=== PATIENT | male | born 1940 | race Caucasian/White ===

== ENCOUNTER 2017-12-01 12:26 | Emergency (ER) | payer OTHER ==
[2017-12-01 13:13] LABS: #Lymphocytes 0.8 thou/uL (1.20-3.40); #Monocytes 0.3 thou/uL (0.11-0.59); #Neutrophils 5.9 thou/uL (1.40-6.50); %Basophils 0.6 % (0.0-1.0); %Eosinophils 0.4 % (0.0-10.0); %Lymphocytes 11.8 % (21.0-51.0); %Monocytes 4.2 % (0.0-10.0); %Neutrophils 82.9 % (42.0-75.0); Hemoglobin 12.9 g/dL (14.0-18.0); Mean Corpuscular HGB CONC 33.2 g/dL (32.0-36.0); Mean Corpuscular Hemoglobin 29.5 pg (27.0-31.0); Mean Platelet Volume 9.1 fL (7.4-10.4); Platelet Count 153 thou/uL (130-400); Red Blood Cell (RBC) Count 4.37 mill/uL (4.70-6.10); White Blood Cell (WBC) Count 7.1 thou/uL (4.8-10.8)
[2017-12-01 13:18] LABS: INR-International Normal Ratio 1.1; PTT 30.7 SEC (22.9-36.1)
[2017-12-01 13:27] LABS: ALT (SGPT) 18 U/L (8-55); AST (SGOT) 16 U/L (5-34); Albumin 3.8 g/dL (3.4-4.8); Alkaline Phosphatase 87 U/L (40-150); Anion Gap 14 mmol/L (10-20); BUN (Urea Nitrogen) 30 mg/dL (8.4-25.7); Bilirubin, Total 0.4 mg/dL (0.2-1.2); CK (CPK) 99 U/L (30-200); Calc. Creatinine Clearance 0 mL/min (70-130); Calcium 9.4 mg/dL (7.8-10.44); Carbon Dioxide 26 mmol/L (23-31); Chloride 102 mmol/L (98-107); Estimated GFR-MDRD 70; Globulin 2.4 g/dL (2.4-3.5); Glucose 131 mg/dL (83-110); Potassium 4.9 mmol/L (3.5-5.1); Protein, Total 6.2 g/dL (5.8-8.1); Sodium 137 mmol/L (136-145)
[2017-12-01 13:28] LABS: CKMB 2.5 ng/mL (0-6.6); Troponin I Less than 0.010 ng/mL (< 0.028)
[2017-12-01] MEDS ORDERED: Metoprolol Tartrate 25 MG TAB ONE (14:00)
--- NOTE | 2017-12-01 14:29 | RAD ---
SINGLE VIEW OF THE CHEST: Comparison: None. History: Chest pain. FINDINGS: Single view of the chest shows a normal sized cardiomediastinal silhouette. There is no evidence of c onsolidation, mass, or pleural effusion. The bones are unremarkable. IMPRESSION: No evidence of acute cardiopulmonary disease. POS: [facility]
[2017-12-01] MEDS ORDERED: Apixaban 5 MG TAB PO SCH (15:45)
== END 2017-12-01 15:54 | disposition home or self-care (01) ==
LOC: NAV ERS 12:26
DX: I48.91 Unspecified atrial fibrillation (principal); I34.0 Nonrheumatic mitral (valve) insufficiency; M19.90 Unspecified osteoarthritis, unspecified site; N40.0 Benign prostatic hyperplasia without lower urinary tract symptoms; Z79.899 Other long term (current) drug therapy
CPT/HCPCS: 36415; 71045; 80053; 82553; 83880; 84443; 84484; 85025; 85610; 85730; 93005; 93306

== ENCOUNTER 2018-05-30 07:42 | Emergency (ER) | payer MEDICARE, OTHER ==
[2018-05-30 08:43] LABS: ALT (SGPT) 26 U/L (8-55); AST (SGOT) 20 U/L (5-34); Albumin 3.7 g/dL (3.4-4.8); Alkaline Phosphatase 81 U/L (40-150); Anion Gap 11 mmol/L (10-20); BUN (Urea Nitrogen) 22 mg/dL (8.4-25.7); Bilirubin, Total 0.5 mg/dL (0.2-1.2); Calc. Creatinine Clearance 0 mL/min (70-130); Calcium 9.4 mg/dL (7.8-10.44); Carbon Dioxide 25 mmol/L (23-31); Chloride 104 mmol/L (98-107); Estimated GFR-MDRD Greater than 90; Globulin 2.3 g/dL (2.4-3.5); Glucose 103 mg/dL (83-110); Potassium 4.1 mmol/L (3.5-5.1); Sodium 136 mmol/L (136-145)
[2018-05-30 08:44] LABS: CKMB 1.2 ng/mL (0-6.6)
--- NOTE | 2018-05-30 08:49 | CT ---
CT HEAD NONCONTRAST: HISTORY: Syncope. Dizziness. FINDINGS: No comparison. There is no evidence of acute intracranial hemorrhage or infarct. Ventricles appear normal in size, shape, and position. There is no mass effect of shift of midline structures. IMPRESSION: No acute intracranial abnormalities are demonstrated. POS: [facility]
--- NOTE | 2018-05-30 08:50 | RAD ---
CHEST 1 VIEW: HISTORY: Dizziness. COMPARISON: 12/01/2017. FINDINGS: Cardiac silhouette is magnified by projection. Pulmonary vasculature is unremarkable. Mediastinum i s midline. No lobar consolidation or evidence of pneumothorax. drill runner helper leads overlie the ch est. IMPRESSION: No active cardiopulmonary abnormalities are demonstrated. POS: [facility]
[2018-05-30 09:02] LABS: #Basophils 0.1 thou/uL (0.0-0.2); #Eosinphils 0.1 thou/uL (0.0-0.7); #Lymphocytes 1.2 thou/uL (1.20-3.40); #Monocytes 0.6 thou/uL (0.11-0.59); #Neutrophils 3.2 thou/uL (1.40-6.50); %Basophils 1.1 % (0.0-1.0); %Eosinophils 2.3 % (0.0-10.0); %Lymphocytes 22.9 % (21.0-51.0); %Monocytes 11.2 % (0.0-10.0); %Neutrophils 62.5 % (42.0-75.0); Hemoglobin 12.1 g/dL (14.0-18.0); Mean Corpuscular HGB CONC 33.3 g/dL (32.0-36.0); Mean Corpuscular Hemoglobin 30.8 pg (27.0-31.0); Mean Corpuscular Volume 92.5 fL (78.0-98.0); Platelet Count 164 thou/uL (130-400); RBC Distribution Width 12.3 % (11.5-14.5); Red Blood Cell (RBC) Count 3.92 mill/uL (4.70-6.10); White Blood Cell (WBC) Count 5.2 thou/uL (4.8-10.8)
[2018-05-30 09:22] LABS: Bilirubin Negative (Negative); Blood, Urine Trace (Negative); Clarity Clear (Clear); Glucose, Urine (Dipstick) Negative (Negative); Leukocyte Negative (Negative); Nitrite Negative (Negative); Protein, Urine (Dipstick) Negative (Neg-Trace); Urobilinogen 0.2 mg/dL (0.2-1.0); pH, Urine 7.5 (5.0-9.0)
[2018-05-30 09:25] LABS: Bacteria/HPF None Seen HPF (None Seen); RBC/HPF 0-3 HPF (0-3); Squamous Epithelial 0-3 HPF (0-3); WBC/HPF None Seen HPF (0-3)
== END 2018-05-30 16:45 ==
LOC: NAV ERS 07:42
DX: R42 Dizziness and giddiness (principal); I10 Essential (primary) hypertension; R55 Syncope and collapse; I48.91 Unspecified atrial fibrillation; N40.0 Benign prostatic hyperplasia without lower urinary tract symptoms; Z79.899 Other long term (current) drug therapy
CPT/HCPCS: 70450; 71045; 80053; 81003; 81015; 82553; 83880; 84484; 85025; 93005

== ENCOUNTER 2020-01-19 04:46 | Emergency (ER) | payer OTHER ==
[2020-01-19] MEDS ORDERED: traMADol HCl 50 MG TAB ONE (05:03)
[2020-01-19] MEDS ORDERED: Azithromycin 250 MG TAB ONE (06:38)
--- NOTE | 2020-01-19 07:44 | CT ---
CT OF THE LUMBAR SPINE WITHOUT CONTRAST: COMPARISON: None. HISTORY: Fall while moving a mattress. The patient hit mid back on a chair. The patient is wary of bruising as he is on Eliquis. TECHNIQUE: Multiple contiguous axial images were obtained in a CT of the lumbar spine without contrast. Sagitta l and coronal reformats were performed. FINDINGS: Mild to moderate degenerative changes were seen throughout the lumbar spine. The vertebral bodies de monstrate normal height and alignment without acute fracture or subluxation. There is a small area of bruising at the thoracolumbar junction without large focal fluid collection. There is a 4.4 cm cyst in the right kidney. Atherosclerotic calcifications are seen in the aorta. The other prevertebral and paraspinal soft tissues are unremarkable. There is slight buckling of the posterior aspect of the T11 and T12 ribs. These may represent acute or chronic rib fractures. IMPRESSION: 1. No evidence of acute osseous abnormality of the lumbar spine. 2. Possible minimally displaced posterior T11 and T12 rib fractures. These abnormalities may be acu te or chronic. POS: [facility]
--- NOTE | 2020-01-19 09:44 | CT ---
CT OF THE CHEST WITHOUT CONTRAST: COMPARISON: None. HISTORY: Fall with back trauma in the mid lower back. There is concern about an area of bruising in the mid b ack as the patient is on Eliquis. TECHNIQUE: Multiple contiguous axial images were obtained in a CT of the chest without contrast. Sagittal and c oronal reformats were performed. FINDINGS: The heart is normal in size. Calcifications are seen in the coronary arteries and aorta. No abdomin al or pelvic lymphadenopathy is appreciated on this limited noncontrast examination. No focal infiltrates or suspicious pulmonary nodules are seen. Atelectasis is seen in the lung bases . Scarring is seen in the bilateral upper lobes. No pneumothorax or pleural effusion are seen. Degenerative changes are seen in the spine. There is slight deformity of the posterior right 11th an d 12th ribs which could represent nondisplaced rib fractures. No other rib deformities are appreciat ed. There is a cyst in the right kidney. The other visualized subdiaphragmatic structures are unremarkab le. The chest wall soft tissues are unremarkable. There is a small area of increased density in the subcutaneous fat of the midline of the back which may represent a tiny hematoma. IMPRESSION: 1. Possible right 11th and 12th rib fractures. 2. No evidence of acute intrathoracic abnormality. 3. Possible small tiny hematoma in the subcutaneous fat in the midline of the mid back. POS: [facility]
== END 2020-01-19 07:05 | disposition home or self-care (01) ==
LOC: NAV ERS 04:46
DX: S22.41XA Multiple fractures of ribs, right side, initial encounter for closed fracture (principal); S20.221A Contusion of right back wall of thorax, initial encounter; I48.91 Unspecified atrial fibrillation; G20 Parkinson's disease; M19.90 Unspecified osteoarthritis, unspecified site; N40.0 Benign prostatic hyperplasia without lower urinary tract symptoms; Z79.899 Other long term (current) drug therapy; W01.0XXA Fall on same level from slipping, tripping and stumbling without subsequent striking against object, initial encounter
CPT/HCPCS: 71250; 72131; 94799

== ENCOUNTER 2020-05-16 12:02 | Emergency (ER) | payer MEDICARE ==
--- NOTE | 2020-05-16 12:54 | CT ---
CT head noncontrast HISTORY: Fall. COMPARISON: 03/29/2020. FINDINGS: There is no evidence of acute intracranial hemorrhage or infarct. Mild diffuse cortical atr ophy and chronic ischemic small vessel disease. There is no mass effect or shift of midline structures. Visualized paranasal sinuses remain well aera ge. IMPRESSION : No acute injury is demonstrated.
== END 2020-05-16 13:10 | disposition home or self-care (01) ==
LOC: NAV ERS 12:02
DX: S00.03XA Contusion of scalp, initial encounter (principal); G30.9 Alzheimer's disease, unspecified; F02.80 Dementia in other diseases classified elsewhere, unspecified severity, without behavioral disturbance, psychotic disturbance, mood disturbance, and anxiety; I48.91 Unspecified atrial fibrillation; N40.0 Benign prostatic hyperplasia without lower urinary tract symptoms; M19.90 Unspecified osteoarthritis, unspecified site; G20 Parkinson's disease; Z79.899 Other long term (current) drug therapy; W18.2XXA Fall in (into) shower or empty bathtub, initial encounter
CPT/HCPCS: 70450

== ENCOUNTER 2020-05-22 13:08 | Emergency (ER) | payer MEDICARE ==
--- NOTE | 2020-05-22 13:47 | RAD ---
Exam: Chest one view HISTORY:Altered mental status Comparison: 05/30/2018 FINDINGS: Cardiac silhouette: Normal Aorta: Unremarkable Pulmonary vessels: Normal Costophrenic angles: Clear LUNGS: No masses or consolidation. Pneumothorax: None Osseous abnormalities: None IMPRESSION: No acute cardiopulmonary process.
[2020-05-22] MEDS ORDERED: Sodium Chloride 0.9% 500 ML ONE ×2 (13:51→14:46)
[2020-05-22 13:59] LABS: #Basophils 0.1 thou/uL (0.0-0.2); #Eosinphils 0.1 thou/uL (0.0-0.7); #Lymphocytes 1.3 thou/uL (1.20-3.40); #Monocytes 0.5 thou/uL (0.11-0.59); #Neutrophils 2.5 thou/uL (1.40-6.50); %Basophils 1.5 % (0.0-1.0); %Eosinophils 1.9 % (0.0-10.0); %Monocytes 10.4 % (0.0-10.0); %Neutrophils 56.2 % (42.0-75.0); Hemoglobin 13.2 g/dL (14.0-18.0); Mean Corpuscular HGB CONC 32.2 g/dL (32.0-36.0); Mean Corpuscular Hemoglobin 29.5 pg (27.0-31.0); Mean Corpuscular Volume 91.5 fL (78.0-98.0); Mean Platelet Volume 8.5 fL (7.4-10.4); Platelet Count 156 thou/uL (130-400); Red Blood Cell (RBC) Count 4.46 mill/uL (4.70-6.10); White Blood Cell (WBC) Count 4.5 thou/uL (4.8-10.8)
[2020-05-22 14:03] LABS: ALT (SGPT) 15 U/L (8-55); AST (SGOT) 16 U/L (5-34); Albumin 4.1 g/dL (3.4-4.8); Alkaline Phosphatase 84 U/L (40-110); Anion Gap 13 mmol/L (10-20); BUN (Urea Nitrogen) 17 mg/dL (8.4-25.7); Bilirubin, Total 0.5 mg/dL (0.2-1.2); Calc. Creatinine Clearance 0 mL/min (70-130); Carbon Dioxide 25 mmol/L (23-31); Chloride 97 mmol/L (98-107); Estimated GFR-MDRD 84; Globulin 2.3 g/dL (2.4-3.5); Glucose 98 mg/dL (83-110); Potassium 4.5 mmol/L (3.5-5.1); Protein, Total 6.4 g/dL (5.8-8.1); Sodium 130 mmol/L (136-145)
--- NOTE | 2020-05-22 14:14 | CT ---
Exam: Head CT without contrast HISTORY: Altered mental status. Patient fell 6 days ago and hit head bathroom. Patient fell in 2 year s ago. COMPARISON: none FINDINGS: Hemorrhage: No intraparenchymal hemorrhage or extra-axial hematoma. Brain parenchyma: Cortical durham-white matter differentiation is preserved. No mass effect or midline shift. Basilar cisterns are patent.Chronic small vessel ischemic changes of the white matter Ventricular system: Ventricles and sulci are patent and symmetric. Calvarium: Intact. Sinuses and mastoid air cells: Adequate aeration. IMPRESSION: 1. No acute intracranial process. 2. No intracranial posttraumatic sequelae.
[2020-05-22 14:47] LABS: Bilirubin Negative (Negative); Blood, Urine Large (Negative); Clarity Clear (Clear); Glucose, Urine (Dipstick) Negative (Negative); Ketone, Urine Negative (Negative); Leukocyte Negative (Negative); Nitrite Negative (Negative); Protein, Urine (Dipstick) Negative (Neg-Trace)
[2020-05-22 14:58] LABS: Squamous Epithelial 0-3 HPF (0-3); WBC/HPF 0-3 HPF (0-3)
== END 2020-05-22 15:50 | disposition home or self-care (01) ==
LOC: NAV ERS 13:08
DX: E87.1 Hypo-osmolality and hyponatremia (principal); Z79.899 Other long term (current) drug therapy
CPT/HCPCS: 51701; 70450; 71045; 80053; 81003; 81015; 83605; 83880; 84484; 85025; 93005; 94760; 96360; J7030

== ENCOUNTER → 2020-06-11 | Emergency (ER) | payer MEDICARE, OTHER ==
--- NOTE | 2020-06-11 20:16 | CT ---
Head CT without contrast 06/11/2020: COMPARISON: 05/22/2020 HISTORY: Fall, trauma, pain TECHNIQUE: Axial CT imaging at 5 mm intervals from vertex through skull base without contrast. Irvin l and sagittal reformatted imaging obtained FINDINGS: Visualized paranasal sinuses and mastoid air cells are well-aerated. No displaced calvarial fracture. There is a focal area of posterior right-sided scalp swelling with a punctate focus of soft tissue gas consistent with laceration. A punctate associated subcutaneous foreign body is noted on sagittal image 26. No associated calvarial fracture. No intracranial hemorrhage, midline shift, or mass effect. IMPRESSION: Posterior right scalp laceration with no associated fracture or intracranial hemorrhage.
[2020-06-11 20:51] LABS: #Basophils 0.1 thou/uL (0.0-0.2); #Eosinphils 0.1 thou/uL (0.0-0.7); #Lymphocytes 1.1 thou/uL (1.20-3.40); #Monocytes 0.5 thou/uL (0.11-0.59); #Neutrophils 4.5 thou/uL (1.40-6.50); %Basophils 0.9 % (0.0-1.0); %Eosinophils 1.3 % (0.0-10.0); %Lymphocytes 17.5 % (21.0-51.0); %Monocytes 8.3 % (0.0-10.0); Hemoglobin 12.7 g/dL (14.0-18.0); Mean Corpuscular HGB CONC 31.3 g/dL (32.0-36.0); Mean Corpuscular Volume 92.6 fL (78.0-98.0); Mean Platelet Volume 8.4 fL (7.4-10.4); Platelet Count 145 thou/uL (130-400); RBC Distribution Width 11.7 % (11.5-14.5); Red Blood Cell (RBC) Count 4.38 mill/uL (4.70-6.10); White Blood Cell (WBC) Count 6.2 thou/uL (4.8-10.8)
[2020-06-11 20:59] LABS: INR-International Normal Ratio 1.2; Prothrombin Time 15.1 sec (12.0-14.7)
[2020-06-11 21:00] LABS: PTT 31.9 sec (22.9-36.1)
[2020-06-11 21:07] LABS: ALT (SGPT) 17 U/L (8-55); AST (SGOT) 16 U/L (5-34); Albumin 3.7 g/dL (3.4-4.8); Alkaline Phosphatase 95 U/L (40-110); Anion Gap 13 mmol/L (10-20); BUN (Urea Nitrogen) 24 mg/dL (8.4-25.7); Bilirubin, Total 0.5 mg/dL (0.2-1.2); Calc. Creatinine Clearance 0 mL/min (70-130); Carbon Dioxide 25 mmol/L (23-31); Chloride 100 mmol/L (98-107); Estimated GFR-MDRD 86; Globulin 2.4 g/dL (2.4-3.5); Glucose 94 mg/dL (83-110); Potassium 4.3 mmol/L (3.5-5.1); Protein, Total 6.1 g/dL (5.8-8.1); Sodium 134 mmol/L (136-145)
--- NOTE | 2020-06-11 21:49 | CT ---
CT CERVICAL SPINE WITHOUT CONTRAST: Comparison: 03-29-2020 History: Fall. Dizziness. Laceration to the back of the head. FINDINGS: No craniocervical disassociation. Appropriate alignment of the lateral masses of C1 and C2. There fuentes ears to be a nondisplaced right C2 lateral mass fracture (sagittal image 43 and 44, coronal image 36 and 37). No additional cervical spine vertebral body fractures. Intact odontoid process. No preverteb ral soft tissue swelling or epidural hematoma. No acute abnormality in the visualized upper mediastinum and lung apices. There are varying degrees of central canal stenosis and foraminal narrowing on the basis of degenerat lidia change. IMPRESSION: 1. Nondisplaced right C2 lateral mass fracture. POS: [facility]
== END ==
LOC: NAV ERS 19:45
DX: S12.101A Unspecified nondisplaced fracture of second cervical vertebra, initial encounter for closed fracture (principal); S01.01XA Laceration without foreign body of scalp, initial encounter; G30.9 Alzheimer's disease, unspecified; F02.80 Dementia in other diseases classified elsewhere, unspecified severity, without behavioral disturbance, psychotic disturbance, mood disturbance, and anxiety; I48.91 Unspecified atrial fibrillation; N40.0 Benign prostatic hyperplasia without lower urinary tract symptoms; M19.90 Unspecified osteoarthritis, unspecified site; G20 Parkinson's disease; Z79.899 Other long term (current) drug therapy; W01.0XXA Fall on same level from slipping, tripping and stumbling without subsequent striking against object, initial encounter
CPT/HCPCS: 70450; 72125; 80053; 84484; 85025; 85610; 85730; 93005

== ENCOUNTER 2020-07-09 14:28 | Emergency (ER) | payer OTHER ==
[2020-07-09 15:11] LABS: #Eosinphils 0.1 thou/uL (0.0-0.7); #Lymphocytes 1.3 thou/uL (1.20-3.40); #Monocytes 0.6 thou/uL (0.11-0.59); #Neutrophils 3.2 thou/uL (1.40-6.50); %Basophils 0.8 % (0.0-1.0); %Eosinophils 2.2 % (0.0-10.0); %Lymphocytes 24.3 % (21.0-51.0); %Monocytes 11.7 % (0.0-10.0); Hemoglobin 12.5 g/dL (14.0-18.0); Mean Corpuscular HGB CONC 32.4 g/dL (32.0-36.0); Mean Corpuscular Hemoglobin 30.1 pg (27.0-31.0); Mean Platelet Volume 6.8 fL (7.4-10.4); Platelet Count 248 thou/uL (130-400); RBC Distribution Width 11.7 % (11.5-14.5); Red Blood Cell (RBC) Count 4.15 mill/uL (4.70-6.10); White Blood Cell (WBC) Count 5.2 thou/uL (4.8-10.8)
[2020-07-09 15:33] LABS: Anion Gap 12 mmol/L (10-20); BUN (Urea Nitrogen) 32 mg/dL (8.4-25.7); Calc. Creatinine Clearance 0 mL/min (70-130); Calcium 8.9 mg/dL (7.8-10.44); Carbon Dioxide 26 mmol/L (23-31); Chloride 102 mmol/L (98-107); Estimated GFR-MDRD Greater than 90; Glucose 121 mg/dL (83-110); Potassium 4.1 mmol/L (3.5-5.1); Sodium 136 mmol/L (136-145)
== END 2020-07-09 17:20 | disposition home or self-care (01) ==
LOC: NAV ERS 14:28
DX: R33.9 Retention of urine, unspecified (principal); I48.91 Unspecified atrial fibrillation; Z79.899 Other long term (current) drug therapy
CPT/HCPCS: 51798; 80048; 85025

== ENCOUNTER 2020-09-10 17:00 | Emergency (ER) | payer OTHER ==
[2020-09-10] MEDS ORDERED: Lidocaine 1% (PF) 30 ML VIAL ONE (17:18)
== END 2020-09-10 17:51 | disposition home or self-care (01) ==
LOC: NAV ERS 17:00
DX: S61.412A Laceration without foreign body of left hand, initial encounter (principal); I48.91 Unspecified atrial fibrillation; Z79.899 Other long term (current) drug therapy; W01.118A Fall on same level from slipping, tripping and stumbling with subsequent striking against other sharp object, initial encounter
CPT/HCPCS: 12002; J2001

== ENCOUNTER 2020-10-19 04:37 | Emergency (ER) | payer MEDICAID, OTHER, SELFPAY ==
[2020-10-19] MEDS ORDERED: Lidocaine 1% w/Epinephrine 1:100K 30 ML VIAL ONE (05:23)
[2020-10-19] MEDS ORDERED: Bacitracin 1 PK ONE (05:50)
[2020-10-19] MEDS ORDERED: Boostrix 0.5 ML (Tdap) VIAL ONE (06:06)
--- NOTE | 2020-10-19 07:44 | CT ---
PRELIMINARY REPORT/[facility]/EMERGENCY AFTER HOURS PROCEDURE EXAM: CT Head Without Intravenous Contrast. CLINICAL HISTORY: FALL; DENIES LOC; LAC ABOVE RIGHT EYE. TECHNIQUE: Axial computed tomography images of the head/brain without intravenous contrast. COMPARISON: None provided. FINDINGS: BRAIN: No acute intraparenchymal hemorrhage. No mass lesion. No CT evidence for acute territorial infarct. N o midline shift or extra-axial collection. VENTRICLES: No hydrocephalus. ORBITS: The orbits are unremarkable. SINUSES AND MASTOIDS: The paranasal sinuses and mastoid air cells are clear. SOFT TISSUES: Soft tissue injury in the right supraorbital-frontal region noted. No radiopaque foreign body is see n. BONES: No acute skull fracture. IMPRESSION: No acute intracranial abnormality. ELECTRONICALLY SIGNED BY: Buddy Sheehan MD Oct 19, 2020 5:16:18 AM AUDIOVISUAL TECHNICIAN This report is intended for review by the ordering physician only, in accordance of law. If you recei ve this report in error, please call [facility] at [phone]. FINAL REPORT Emergent after hours CT head without IV contrast HISTORY: Injury after a fall. Laceration to right eyebrow. COMPARISON: 06/11/2020 IMPRESSION: 1. No acute intracranial abnormality is demonstrated. 2. Findings likely reflective of mild chronic small vessel ischemic changes. 3. Mild cerebral volume loss Findings are in agreement with preliminary report by [facility]. Transcribed Date/Time: 10/19/2020 7:59 AM
--- NOTE | 2020-10-19 08:09 | CT ---
PRELIMINARY REPORT/[facility]/EMERGENCY AFTER HOURS PROCEDURE: EXAM: CT Cervical Spine Without Intravenous Contrast. CLINICAL HISTORY: FALL; DENIES LOC; LAC ABOVE RIGHT EYE TECHNIQUE: Axial computed tomography images of the cervical spine without intravenous contrast. Sagit abe and coronal reformations performed. COMPARISON: None provided. FINDINGS: BONES: No acute fracture or focal osseous lesion. Bony alignment is anatomic. DISCS / DEGENERATIVE CHANGES: No significant disc or facet degeneration with some age-related changes . No significant central canal or neural foraminal stenosis. SOFT TISSUES: No prevertebral soft tissue swelling. No apical pneumothorax. IMPRESSION: No acute cervical spine abnormality. ELECTRONICALLY SIGNED BY: Buddy Sheehan MD Oct 19, 2020 5:20:30 AM CLINICAL DATA MANAGEMENT MANAGER FINAL REPORT NONCONTRAST CT CERVICAL SPINE: HISTORY: Injury after a fall. Trauma. Laceration to right eyebrow. TECHNIQUE: Contiguous axial CT images are obtained through the cervical spine from the skull base to the T2-3 le yair. Sagittal and coronal reformatted images are provided. COMPARISON: 06/11/2020. IMPRESSION: 1. No fracture or subluxation involving the cervical spine. 2. Nondisplaced fracture right C2 lateral mass noted on prior study in 2019 is not visualized on curr ent exam related to interval healing. 3. Vascular calcifications in the carotid arteries. 4. Findings are in agreement with the [facility] report. Transcribed Date/Time: 10/19/2020 8:29 AM
== END 2020-10-19 08:50 | disposition home or self-care (01) ==
LOC: NAV ERS 04:37
DX: S01.111A Laceration without foreign body of right eyelid and periocular area, initial encounter (principal); S51.001A Unspecified open wound of right elbow, initial encounter; I48.19 Other persistent atrial fibrillation; G30.9 Alzheimer's disease, unspecified; N40.0 Benign prostatic hyperplasia without lower urinary tract symptoms; M19.90 Unspecified osteoarthritis, unspecified site; G20 Parkinson's disease; Z23 Encounter for immunization; W18.2XXA Fall in (into) shower or empty bathtub, initial encounter; Z79.899 Other long term (current) drug therapy
CPT/HCPCS: 12013; 70450; 72125; 90471; 90715

== ENCOUNTER 2020-10-27 16:56 | Emergency (ER) | payer OTHER | END 2020-10-27 17:25 | disposition home or self-care (01) | LOC: NAV ERS 16:56 | DX: S01.81XD Laceration without foreign body of other part of head, subsequent encounter (principal); I48.91 Unspecified atrial fibrillation; N40.0 Benign prostatic hyperplasia without lower urinary tract symptoms; G20 Parkinson's disease; Z79.899 Other long term (current) drug therapy ==

== ENCOUNTER 2021-05-16 15:58 | Emergency (ER) | payer OTHER | END 2021-05-16 16:57 | disposition home or self-care (01) | LOC: NAV ERS 15:58 | DX: K59.00 Constipation, unspecified (principal) | CPT/HCPCS: 99283 ==